=== PATIENT | female | born 1955 | race Caucasian/White ===

== ENCOUNTER 2023-09-19 14:17 | Inpatient (IN) ==
[2023-09-19] MEDS ORDERED: IOPAMIDOL 100 ML BOTTLE IV ONE (14:18)
[2023-09-19 14:30] LABS: POC Calcium, Ionized 1.27 (1.16-1.32)
[2023-09-19 14:57] LABS: POC INR 1.4 (0.8-1.2); POC Pro Time 16.1 (11.9-14.5)
[2023-09-19 15:05] LABS: Basophils # (Auto) 0.06 K/mcL (0.00-0.30); Basophils % (Auto) 0.6 % (0.0-2.0); Eosinophils % (Auto) 0.9 % (0.0-7.0); Hematocrit 41.8 % (34.1-44.9); Hemoglobin 13.4 g/dL (11.2-15.7); Lymphocytes # (Auto) 1.84 K/mcL (1.50-4.80); Lymphocytes % (Auto) 17.2 % (15.5-49.0); Mean Cell Volume 90.7 fL (80.0-100.0); Mean Corpuscular HGB Conc 32.1 g/dL (31.0-36.0); Monocytes # (Auto) 0.67 K/mcL (0.10-0.90); Monocytes % (Auto) 6.3 % (1.0-12.0); Neutrophils % (Auto) 74.7 % (38.0-78.0); Platelet Count 337 K/mcL (140-440); RBC 4.61 M/mcL (3.59-5.38); Red Cell Distribution Width 14.1 % (11.5-14.5); WBC 10.7 K/mcL (4.5-11.0)
[2023-09-19 15:28] LABS: ALT/SGPT 10 U/L (<40); AST/SGOT 20 U/L (<32); Albumin 4.5 gm/dL (3.2-5.2); Albumin/Globulin Ratio 1.4 (1.0-2.3); Alkaline Phosphatase 119 U/L (39-117); Bilirubin,Total 0.5 mg/dL (0.1-1.0); Blood Urea Nitrogen 23 mg/dL (8-23); Calcium 10.4 mg/dL (8.6-10.4); Carbon Dioxide 25 mmol/L (22-30); Chloride 104 mmol/L (96-108); Globulin 3.2 gm/dL (2.2-3.7); Glomerular Filtration Rate 57; Glucose 104 mg/dL (70-105)
[2023-09-19 15:36] LABS: INR 0.9 (0.9-1.1); Prothrombin Time 13.3 sec (11.9-14.5)
[2023-09-19 16:06] LABS: Appearance,Urine Clear (Clear); Bilirubin,Urine Negative (Negative); Color,Urine Yellow; Culture Indicated,Urine No; Glucose,Urine (UA) Negative (Negative); Ketones,Urine Negative (Negative); Leukocyte Esterase,Urine Negative /uL (Negative); Nitrate,Urine Negative (Negative); PH,Urine 5.5 (5.0-9.0); Protein,Urine Negative (Negative); Specific Gravity,Urine 1.015 (1.000-1.035); Urine Blood Negative ery/mcL (Negative); Urobilinogen,Urine Normal
[2023-09-19 17:29] LABS: Alcohol, Blood < 10.1 mg/dL; Alcohol,Blood < 0.010 gm/dL (<0.010)
[2023-09-19] MEDS: ASPIRIN 81 MG TAB.CHEW CHEWED ONE (17:29)
[2023-09-19] MEDS: CLOPIDOGREL 75 MG TABLET PO ONE (17:41)
[2023-09-19 18:01] LABS: Amphetamine Screen,Urine None detected; Barbiturate Screen,Urine None detected; Benzodiazepines Screen,Urine None detected; Cannabinoid Screen,Urine None detected; Cocaine Screen,Urine None detected; Opiate Screen,Urine None detected; Oxycodone, Urine Screen None detected; Phencyclidine Screen,Urine None detected
[2023-09-19] MEDS ORDERED: POTASSIUM CHLORIDE 20 MEQ TABLET PO PRN ×2 (19:25)
[2023-09-19] MEDS ORDERED: IPRATROPIUM/ALBUTEROL 3 ML AMPUL.NEB NEB PRN (19:25)
[2023-09-19] MEDS ORDERED: MAGNESIUM SULFATE 2 GM/50 ML BAG IV PRN (19:25)
[2023-09-19] MEDS ORDERED: POTASSIUM CHLORIDE 40 MEQ in DEXTROSE 5% IN WATER 500 ML IV PRN (19:25)
[2023-09-19] MEDS ORDERED: ONDANSETRON 4 MG/2 ML VIAL IV PRN (19:25)
[2023-09-19] MEDS ORDERED: POLYETHYLENE GLYCOL 3350 17 GM PACKET PO PRN (19:25)
[2023-09-19] MEDS: 0.9 % SODIUM CHLORIDE 1,000 ML IV SCH (19:45)
[2023-09-19] MEDS ORDERED: NITROGLYCERIN 0.4 MG TAB.SUBL SL PRN (19:53)
[2023-09-19] MEDS ORDERED: BUTALB/ACETAMINOPHEN/CAFFEINE 1 TABLET PO PRN (20:38)
[2023-09-19] MEDS: DOCUSATE SODIUM 100 MG CAPSULE PO SCH (21:04)
[2023-09-19] MEDS: SENNOSIDES 1 TABLET PO PRN (21:05)
[2023-09-19] MEDS: ATORVASTATIN 40 MG TABLET PO SCH (21:05)
[2023-09-19 22:40] LABS: HDL Cholesterol 46 mg/dL (>40); LDL Cholesterol,Calculated 44 mg/dL (<100); Non-HDL Cholesterol 65 mg/dL (<130); Triglycerides 107 mg/dL (<150)
[2023-09-19] MEDS: SUCRALFATE 1 GM/10 ML ORAL.SUSP PO PRN (23:00)
[2023-09-20 06:23] LABS: ALT/SGPT 7 U/L (<40); AST/SGOT 15 U/L (<32); Albumin 3.7 gm/dL (3.2-5.2); Albumin/Globulin Ratio 1.5 (1.0-2.3); Alkaline Phosphatase 95 U/L (39-117); Bilirubin,Direct < 0.2 mg/dL (0-0.3); Bilirubin,Total 0.4 mg/dL (0.1-1.0); Blood Urea Nitrogen 18 mg/dL (8-23); Calcium 9.2 mg/dL (8.6-10.4); Carbon Dioxide 24 mmol/L (22-30); Chloride 107 mmol/L (96-108); Globulin 2.5 gm/dL (2.2-3.7); Glomerular Filtration Rate 88; Glucose 107 mg/dL (70-105); Lactate Dehydrogenase 136 U/L (135-225); Phosphorous 3.7 mg/dL (2.5-4.5); Triglycerides 102 mg/dL (<150); Uric Acid 6.4 mg/dL (2.5-8.0)
[2023-09-20] MEDS: DULoxetine 30 MG CAPSULE PO SCH (09:38)
[2023-09-20] MEDS: LEVOTHYROXINE 50 MCG TABLET PO SCH (09:38)
[2023-09-20] MEDS: ASPIRIN 81 MG TAB.CHEW PO SCH (09:39)
[2023-09-20] MEDS: CLOPIDOGREL 75 MG TABLET PO SCH (09:39)
[2023-09-20] MEDS: PANTOPRAZOLE 40 MG TABLET PO SCH (09:39)
[2023-09-20] MEDS: ENOXAPARIN 40 MG/0.4 ML SYRINGE SQ SCH (09:40)
[2023-09-20] MEDS: 0.9 % SODIUM CHLORIDE 10 ML SYRINGE IV SCH (18:45)
[2023-09-22] MEDS: METOPROLOL SUCCINATE 25 MG TAB.XL.24H PO SCH (08:27)
[2023-09-22 11:57] VITALS: TEMP 97.5; O2SAT 96
== END 2023-09-22 14:05 | DRG 66 ==
LOC: ED 14:17 → ICU 14:17
PROVIDERS: ADMIT Internal Medicine; ATTEND Internal Medicine